=== PATIENT | male | born 1995 | race Two or more races ===

== ENCOUNTER 2023-01-27 13:37 | Inpatient (IN) | payer OTHER, SELFPAY ==
--- NOTE | 2023-01-27 | ECG_ITS ---
Test Reason : COCAINE USE Blood Pressure : / mmHG Vent. Rate : 056 BPM Atrial Rate : 056 BPM P-R Int : 182 ms QRS Dur : 110 ms QT Int : 396 ms P-R-T Axes : 039 066 067 degrees QTc Int : 382 ms Sinus bradycardia Otherwise normal ECG When compared with ECG of 24-APR-2012 18:46, No significant change was found Referred By: Chivo Jo Electronically Signed By:ANAMIKA FLORES MD
--- NOTE | ~2023-01-27 | CT_ITS ---
EXAMINATION: CT HEAD WITHOUT CONTRAST CLINICAL INFORMATION: Status post fall COMPARISON: CT head from 09/11/2017 TECHNIQUE: Contiguous axial imaging was performed from the skull base to vertex without intravenous administration of contrast. This CT examination was performed using dose optimization techniques as appropriate, variously including the following: *Automated exposure control *Adjustment of mA and/or kV according to patient size (this includes techniques or standardized protocols for targeted exams where dose is matched to indication/reason for exam; i.e. extremities or head) *Use of iterative reconstruction technique DLP: 1127 mGy-cm FINDINGS: There is no evidence of acute intracranial hemorrhage or territorial infarction. No abnormal mass effect or midline shift is seen. Maldonado to white matter differentiation is well preserved. No extra-axial fluid collections are identified. The ventricles are normal in size. There is no abnormal attenuation within the brain parenchyma. The osseous structures and soft tissues are normal. The mastoid air cells and visualized portions of the paranasal sinuses are well aerated. CT/CT cervical spine wo IV con IMPRESSION: No acute intracranial pathology. EXAMINATION: Noncontrast CT scan of the cervical spine. INDICATION: Status post fall COMPARISON: None. TECHNIQUE: Helical, multidetector axial images were obtained from the occiput to the upper thorax. Coronal and sagittal reformats of the cervical spine were provided for interpretation. DLP: 1127 mGy-cm FINDINGS: No acute fractures or dislocations of the cervical spine are seen. Anatomic alignment and positioning of the vertebral bodies and posterior elements is noted. The atlantoaxial joint and craniovertebral articulations are normal without evidence of subluxation. There is no prevertebral soft tissue swelling. The thyroid gland and visualized portions of the lung apices and mediastinum are unremarkable. IMPRESSION: No acute visible fracture or dislocation.
--- NOTE | ~2023-01-27 | XR_ITS ---
EXAMINATION: XR HAND, LEFT CLINICAL INFORMATION: Left hand pain. COMPARISON: None available. TECHNIQUE: PA, lateral, and oblique views of the left hand. An indicator arrow points to the fifth digit. FINDINGS: The bones and soft tissues are normal. No fracture. Alignment is anatomic. Joint spaces are maintained. No erosions or soft tissue calcifications. XR/XR hand LT min 3V IMPRESSION: Unremarkable left hand.
[2023-01-27 13:56] VITALS: BP 120/72; PULSE 52; O2SAT 98
[2023-01-27 14:02] VITALS: BP 125/73; PULSE 58; RESP 18; TEMP 36.6; O2SAT 97; BMI 23.5
--- NOTE | 2023-01-27 14:03 | ED_ITS ---
HPI - Psych General Chief Complaint: Psychiatric Symptoms Stated Complaint: CRISIS Time Seen by Provider: 01/27/23 13:54 Source: patient Mode of arrival: EMS Limitations: no limitations History of Present Illness HPI Narrative: Patient arrived by ambulance on a Section 12 signed by in because SI. He has history of bipolar disorder he has long history of mental illness. He states that he feels unsafe complaint: suicidal ideation Onset (ago): day(s) (1) Duration: constant History of same: Yes Relieving factors: none Exacerbating factors: none Associated psychiatric symptoms: none Associated symptoms: denies other symptoms Related Data Allergies Allergy/AdvReac Type Severity Reaction Status Date / Time No Known Allergies Allergy Verified 01/27/23 14:14 [No Known Allergies*] Review of Systems Constitutional: Constitutional: Reports no additional constitutional complaints ENT: Reports system reviewed and no additional complaints, except as documented Cardiovascular: Cardiovascular: Reports no additional cardiovascular complaints Respiratory: Respiratory: Reports no additional respiratory complaints Psychiatric: Psychiatric: Reports depression [facility] Past Medical History [facility] Narrative: Bipolar disorder/depression Social History Social History Alcohol intake: current Alcohol intake frequency: 3 or more drinks per day Smoked in Last 30 Days: Yes Substance Use Type: Crack/Cocaine and Marijuana Advance Directives: No Physical Exam Vital Signs: Vital Signs: Last Vital Signs Temp 98 F 01/27/23 16:00 Pulse 71 01/27/23 16:00 Resp 18 01/27/23 16:00 BP 124/78 01/27/23 16:00 Pulse Ox 98 01/27/23 16:00 O2 Del Method Room Air 01/27/23 16:00 BMI result Body Mass Index 23.5 Const: General: cooperative Nutritional Appearance: average body habitus Orientation/consciousness: patient oriented x3 Limitations: no limitations HEENT: Head: Yes normal to inspection Ears: hearing grossly normal bilaterally General nose exam: Normal external nose present Face and sinus: Yes normal facial exam Mouth: Normal oral and palatal mucosa present Teeth and gingiva: dentition normal Throat: Yes posterior oropharynx normal Neck: Neck: Yes normal visual inspection Chest: Chest palpation & inspection: normal inspection of the chest Resp: Effort & Inspection: normal respiratory effort Auscultation: clear to auscultation bilaterally Cardio: Jugular venous distension: no JVD Rate: regular rate Rhythm: regular rhythm GI: Inspection: Yes normal to inspection Palpation (GI): Soft to palpation, not firm and nontender : General: Yes no CVA tenderness Back/Spine/Pelvis: Back: no CVA tenderness Cervical Spine: normal cervical lordosis Skin: General skin exam: no rashes or lesions noted and turgor normal Lesions: no lesions Rashes: no rashes Neuro: General: patient oriented x3 Cranial nerves: Yes CN's II-XII intact bilaterally Course Reevaluation(s) Reevaluation #1: Signed out to Dr Ross at this time pt is bed search Time: 16:24 Medications Administered Generic Name Dose Route Start Last Admin Trade Name Freq PRN Reason Stop Dose Admin Lorazepam 1 mg 01/27/23 15:13 01/27/23 15:32 Lorazepam 1 Mg Tablet PO 1 mg QID PRN Administration Alcohol Withdrawal Discontinued Medications Generic Name Dose Route Start Last Admin Trade Name Freq PRN Reason Stop Dose Admin Nicotine Polacrilex 2 mg 01/27/23 15:28 01/27/23 15:32 Nicotine Polacrilex 2 Mg Gum BUCCAL 01/27/23 15:29 2 mg ONCE ONE Administration Medical Decision Making Medical Decision Making [facility] Narrative: Patient presented with SI on a Section 12 bed search is ongoing Lab Data 01/27/23 15:41 01/27/23 15:41 Labs: Lab Results 01/27/23 01/27/23 01/27/23 Range/Units 14:42 15:41 15:41 WBC 12.8 H (4.8-10.8) X10*3/uL RBC 4.61 (4.60-5.80) X10*6/uL Hgb 13.7 L (14.0-18.0) g/dl Hct 40.4 L (42.0-52.0) % MCV 87.6 (80.0-98.0) fL MCH 29.7 (27.0-33.0) pg MCHC 33.9 (31.0-36.0) g/dl RDW 13.2 (11.0-16.0) % Plt Count 234 (160-400) X10*3/uL MPV 9.8 (9.4-12.4) fL Immature Gran % (Auto) 0.4 (0.0-0.4) % Neut % (Auto) 67.3 (45-73) % Lymph % (Auto) 22.7 (20-40) % [place] % (Auto) 8.3 (2-11) % Eos % (Auto) 0.9 (0-4) % Baso % (Auto) 0.4 (0-2) % Lymph # (Auto) 2.9 (1.2-4.9) X10*3/uL [place] # (Auto) 1.1 (0.1-1.2) X10*3/uL Eos # (Auto) 0.1 (0.0-0.4) X10*3/uL Baso # (Auto) 0.1 (0.0-0.2) X10*3/uL Abs Immat Gran (auto) 0.05 H (0.00-0.03) X10*3/uL Absolute Neuts (auto) 8.7 H (2.0-8.3) x10*3/uL Absolute Nucleated RBC 0.000 (0.0-0.012) X10*3/uL Nucleated RBC % (auto) 0.0 (0.0-0.2) /100WBC Sodium 138 (135-145) mmol/L Potassium 4.0 (3.3-5.1) mmol/L Chloride 103 (96-108) mmol/L Carbon Dioxide 25 (22-29) mmol/L Anion Gap 14 (12-20) BUN 10 (9-16) mg/dL Creatinine 0.90 (0.5-1.4) mg/dL Estim Creat Clear Calc 113.2 Estimated GFR > 60 Random Glucose 85 (60-115) mg/dL Calcium 9.6 (8.4-10.2) mg/dL Urine Opiates Screen Not Detected (Not Detect) Urine Fentanyl Screen Not Detected (Not Detect) Ur Barbiturates Screen Not Detected (Not Detect) Ur Phencyclidine Scrn Not Detected (Not Detect) Ur Amphetamines Screen Not Detected (Not Detect) U Benzodiazepines Scrn Not Detected (Not Detect) Urine Cocaine Screen POSITIVE H (Not Detect) U Marijuana (THC) Screen POSITIVE H (Not Detect) Discharge Plan Discharge Clinical Impression: Suicidal ideation Patient Disposition: Still a Patient Interventions: [place]-Suicide Risk Severity Scale Last Done: 01/27/23 14:08
[2023-01-27 15:00] LABS: Amphetamine Screen Urine Not Detected (Not Detect); Barbiturates, Urine Not Detected (Not Detect); Benzodiazepines Screen Urine Not Detected (Not Detect); Cannabinoid Screen Urine POSITIVE (Not Detect); Cocaine Screen Urine POSITIVE (Not Detect); Fentanyl, urine Not Detected (Not Detect); Opiate Screen Urine Not Detected (Not Detect); Phencyclidine Screen Urine Not Detected (Not Detect)
--- NOTE | 2023-01-27 15:05 | MHC.CARE ---
Pt is a [facility] bedsearch from the [facility].
[2023-01-27] MEDS: Nicotine Polacrilex 2 MG GUM BUCCAL (15:32)
[2023-01-27] MEDS: LORazepam 1 MG TABLET PO ×2 (15:32→20:16)
[2023-01-27 15:45] LABS: MANUAL DIFF FLAG NO
[2023-01-27 15:46] LABS: Basophils Absolute Auto 0.1 X10*3/uL (0.0-0.2); Basophils Percent Auto 0.4 % (0-2); Eosinophils Absolute Auto 0.1 X10*3/uL (0.0-0.4); Eosinophils Percent Auto 0.9 % (0-4); Hematocrit 40.4 % (42.0-52.0); Hemoglobin 13.7 g/dl (14.0-18.0); Imm Gran Abs Auto 0.05 X10*3/uL (0.00-0.03); Imm Gran Pct Auto 0.4 % (0.0-0.4); Lymphocytes Absolute Auto 2.9 X10*3/uL (1.2-4.9); Lymphocytes Percent Auto 22.7 % (20-40); Mean Corpuscular HGB Conc 33.9 g/dl (31.0-36.0); Mean Corpuscular Hemoglobin 29.7 pg (27.0-33.0); Mean Corpuscular Volume 87.6 fL (80.0-98.0); Mean Platelet Volume 9.8 fL (9.4-12.4); Monocytes Absolute Auto 1.1 X10*3/uL (0.1-1.2); Monocytes Percent Auto 8.3 % (2-11); Neutrophils Absolute Auto 8.7 x10*3/uL (2.0-8.3); Neutrophils Percent Auto 67.3 % (45-73); Platelet Count 234 X10*3/uL (160-400); Red Blood Count 4.61 X10*6/uL (4.60-5.80); Red Cell Distribution Width 13.2 % (11.0-16.0); White Blood Count 12.8 X10*3/uL (4.8-10.8)
[2023-01-27 15:58] LABS: Anion Gap 14 (12-20); Blood Urea Nitrogen 10 mg/dL (9-16); Calcium 9.6 mg/dL (8.4-10.2); Carbon Dioxide 25 mmol/L (22-29); Chloride 103 mmol/L (96-108); Creatinine Clr Calc Pharmacy 113.2; Estimated Glomerular Filt Rate > 60; Glucose Random 85 mg/dL (60-115); Sodium 138 mmol/L (135-145)
[2023-01-27 16:00] VITALS: BP 124/78; PULSE 71; RESP 18; TEMP 36.6; O2SAT 98
--- NOTE | 2023-01-27 16:00 | PC.NURSE ---
report received from CASSIUS ramirez Pt resting comfortably in bed at this time, reporting feeling some withdrawal symptoms , CIWA score 5, Dr. Jo aware PRN Ativan ordered. VSS at this time Pt otherwise in good spirits about being a bedsearch. Pt does endorse histroy of alcohol withdrawal, monitoring vitals and CIWA score per MD discretion. Continue plan of care
--- NOTE | 2023-01-27 16:15 | PC.NURSE ---
EKG and all lab work complete on pt, pt now resting with lights off in room
[2023-01-27 16:36] LABS: COVID-19 Test Negative (Negative); IDNOW Serial# 55D5AD1C
[2023-01-27 17:28] LABS: Ethanol < 10 mg/dL
[2023-01-27 20:17] VITALS: BP 127/77; PULSE 53; RESP 18; TEMP 36.5; O2SAT 99
[2023-01-28] MEDS: LORazepam 1 MG TABLET 2 MG PO (02:59)
[2023-01-28 03:04] VITALS: BP 130/77; PULSE 58; RESP 16; TEMP 36.6; O2SAT 99
--- NOTE | 2023-01-28 05:30 | PC.NURSE ---
Patient slept through the night, no distress observed/reported, asymptomatic of ETOH withdrawal, Ativan 1 mg administered at 2045 and Ativan 2 mg PO administered 258 for restlessness with + effect, disposition per [facility] is section 12 inpatient bed search, behavior non concerning, VSS, will continue to monitor,
[2023-01-28] MEDS: Nicotine Polacrilex 2 MG GUM BUCCAL ×2 (07:35→18:01)
[2023-01-28] MEDS: LORazepam 1 MG TABLET PO ×2 (11:29→20:16)
--- NOTE | 2023-01-28 12:57 | MHC.CARE ---
patient remains an inpt LOC bed search.
[2023-01-28 15:00] VITALS: PULSE 86; RESP 16; O2SAT 97
--- NOTE | 2023-01-28 15:29 | PC.NURSE ---
report received from morning RN, pt is sleeping at this time, respirations even and unlabored, skin pwd, no apparent distress. Continue plan of care for inpatient bedsearch
--- NOTE | 2023-01-28 17:31 | PC.NURSE ---
pt came up to nursing station requesting to talk to someone about his stay. This RN spoke with pt and educated him on what a section 12 means and entails and what the process will be moving forward. Pt is agreeable at this time to the plan. Pt showered and is now relaxing in pod common area
--- NOTE | 2023-01-28 18:05 | PC.NURSE ---
pt on the phone with his girlfriend at this time
[2023-01-28 20:20] VITALS: BP 113/78; PULSE 80; RESP 20; TEMP 37.1; O2SAT 99
--- NOTE | 2023-01-28 21:04 | PC.NURSE ---
Assumed care of pt. at 1900. Pt. up and watching tv. Pt. talked on phone. Pt. does have visible tremors and reports some mild anxiety along with a mild headache attributed to withdrawals. Pt. medicated with ativan per JAN. Pt. is pending inpatient bed search. 15 minute safety checks remain in place. Will continue to monitor.
[2023-01-28] MEDS: HaloperidoL 5 MG TABLET PO (21:27)
[2023-01-28] MEDS: diphenhydrAMINE HCL 25 MG CAPSULE PO (21:27)
--- NOTE | 2023-01-29 02:39 | PC.NURSE ---
At approximately 2100, pt speaking on phone and pacing the hallway. Pt. was asked to pace and move down near the common area so as to not wake other pt's who were sleeping at the time. Pt. became agitated and started pacing more and muttering and making homicidal statements. Statements made about stabbing all of the staff on duty and then killing all the patients . Pt. upset that he was asked to not disturb other patients as other patients can yell and scream and nothing is done . Attempts made to deescalate pt. and security called. Pt. stated that he would beat up all security and everyone else and that he didn't care about charges being pressed and going to custodial because free room and board . This RN able to get pt. to agree to BK perez and lorraine. Pt. paced for about another 30 minutes and then settled into bed and has been asleep since then. Pt. plan remains an inpatient bed search. Will continue to monitor.
[2023-01-29 05:37] VITALS: RESP 16
--- NOTE | 2023-01-29 07:47 | PC.NURSE ---
patient appears to remain at rest at present, client came out and asked for his food to be heated, completed this for client patient seems irritable by this writers perception
[2023-01-29] MEDS: LORazepam 1 MG TABLET PO ×4 (08:37→20:04)
[2023-01-29] MEDS: Nicotine Polacrilex 2 MG GUM BUCCAL ×2 (08:58→12:36)
[2023-01-29 09:16] VITALS: BP 114/69; PULSE 64; RESP 18; TEMP 36.8; O2SAT 98
[2023-01-29 15:33] VITALS: RESP 18
[2023-01-29 17:23] VITALS: BP 127/65; PULSE 60; RESP 14; TEMP 37.1; O2SAT 99
[2023-01-29] MEDS: Gabapentin 300 MG CAPSULE PO ×2 (17:29→20:03)
[2023-01-29] MEDS: Nicotine Polacrilex 2 MG GUM 4 MG BUCCAL (17:56)
[2023-01-29 18:00] VITALS: RESP 14
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
[2023-01-29] MEDS: QUEtiapine Fumarate 100 MG TABLET PO (20:03)
[2023-01-30] MEDS: Nicotine Polacrilex 2 MG GUM 4 MG BUCCAL ×5 (06:37→19:34)
[2023-01-30] MEDS: Acetaminophen 325 MG TABLET 650 MG PO (08:23)
[2023-01-30] MEDS: Gabapentin 300 MG CAPSULE PO ×3 (08:23→19:31)
[2023-01-30] MEDS: LORazepam 1 MG TABLET 2 MG PO ×2 (08:23→11:36)
[2023-01-30 08:35] VITALS: BP 130/80; PULSE 97; RESP 16; TEMP 36.7; O2SAT 98
[2023-01-30 09:56] LABS: Cholesterol 159 mg/dL; HDL Cholesterol 31 mg/dL; LDL Cholesterol Calculated 103 mg/dl; Triglycerides 125 mg/dL
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
[2023-01-30 10:27] LABS: Estimated Average Glucose 97 mg/dL
[2023-01-30] MEDS: QUEtiapine Fumarate 25 MG TABLET 75 MG PO (11:46)
[2023-01-30] MEDS: LORazepam 1 MG TABLET PO ×3 (15:10→19:32)
[2023-01-30] MEDS: QUEtiapine Fumarate 25 MG TABLET PO (15:12)
[2023-01-30 16:26] VITALS: BP 131/83; PULSE 104
[2023-01-30] MEDS: cloNIDine HCL 0.1 MG TABLET PO (18:03)
[2023-01-30 18:06] VITALS: BP 138/72; PULSE 94
[2023-01-30] MEDS: QUEtiapine Fumarate 100 MG TABLET PO (19:32)
[2023-01-31] MEDS: QUEtiapine Fumarate 25 MG TABLET PO (05:46)
[2023-01-31] MEDS: Nicotine Polacrilex 2 MG GUM 4 MG BUCCAL ×3 (05:46→21:40)
[2023-01-31 07:50] VITALS: BP 108/70; PULSE 97; RESP 16; TEMP 36.5; O2SAT 98
[2023-01-31] MEDS: LORazepam 1 MG TABLET 2 MG PO ×2 (07:58→11:29)
[2023-01-31] MEDS: Gabapentin 300 MG CAPSULE PO ×3 (07:58→21:39)
[2023-01-31] MEDS: LORazepam 1 MG TABLET PO ×4 (07:58→21:39)
[2023-01-31] MEDS: QUEtiapine Fumarate 25 MG TABLET 75 MG PO (07:58)
[2023-01-31] MEDS: FLUoxetine HCl 10 MG CAPSULE PO (07:58)
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
[2023-01-31] MEDS: QUEtiapine Fumarate 50 MG TABLET PO (12:43)
[2023-01-31] MEDS: Nicotine 21 MG PATCH.TD24 TRANSDERMA (12:57)
[2023-01-31] MEDS: Acetaminophen 325 MG TABLET 650 MG PO (14:12)
[2023-01-31] MEDS: OLANZapine 10 MG TABLET PO (14:12)
[2023-01-31] MEDS: cloNIDine HCL 0.1 MG TABLET PO (14:59)
[2023-01-31 15:01] VITALS: BP 128/77; PULSE 87
[2023-01-31] MEDS: Ibuprofen 800 MG TABLET PO (15:19)
[2023-01-31 20:25] VITALS: BP 124/60; PULSE 77; RESP 14; TEMP 36.6
[2023-01-31] MEDS: QUEtiapine Fumarate 100 MG TABLET PO (21:39)
[2023-01-31] MEDS: OXcarbazepine 150 MG TABLET PO (21:39)
[2023-02-01] MEDS: LORazepam 1 MG TABLET PO ×3 (04:24→07:50)
[2023-02-01] MEDS: Nicotine Polacrilex 2 MG GUM 4 MG BUCCAL ×3 (04:25→09:13)
[2023-02-01 07:00] VITALS: BMI 27.0
[2023-02-01] MEDS: FLUoxetine HCl 10 MG CAPSULE PO (07:50)
[2023-02-01] MEDS: QUEtiapine Fumarate 25 MG TABLET 75 MG PO (07:50)
[2023-02-01] MEDS: Gabapentin 300 MG CAPSULE PO (07:50)
[2023-02-01] MEDS: OXcarbazepine 150 MG TABLET PO (07:50)
[2023-02-01 08:25] VITALS: BP 129/73; PULSE 99; RESP 16; TEMP 36.7; O2SAT 98
[2023-02-01] MEDS: cloNIDine HCL 0.1 MG TABLET PO (08:30)
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
--- NOTE | 2023-02-01 11:52 | ECG_ITS ---
Test Reason : light heADED Blood Pressure : / mmHG Vent. Rate : 077 BPM Atrial Rate : 077 BPM P-R Int : 168 ms QRS Dur : 094 ms QT Int : 344 ms P-R-T Axes : 061 066 064 degrees QTc Int : 389 ms Normal sinus rhythm Normal ECG When compared with ECG of 27-JAN-2023 16:06, No significant change was found Referred By: Glenn Heard Electronically Signed By:JEISON GEE
[2023-02-01 12:08] LABS: Glucose, Whole Blood 91 mg/dL (60-115)
--- NOTE | 2023-02-01 12:32 | P.EN_ITS ---
Event Note Date of Service: 02/01/23 Event Note: Rapid response called around 1150. Upon arrival to unit patient laying supine on floor confused appearing but able to state name and give history. States was walking in the hallway and developed suddent onset lightheadedness and collapsed. Unclear if there was LOC but did hit head hard per nursing. He reports feeling ongoing lightheadedness, feeling hot, and with sweats. No sob, cp. He continues to try to get up despite being advised to remain still. C- collar applied to patient's neck for stabilization. EKG obtained showing NSR. QTc normal. Per Dr. Heard patient was started on low dose trileptal last night, which could potentially result in lightheadedness. However, given history seems this may have been a vasovagal episode now with confusion likely due to concussion. Head and cervical spine CT ordered to evaluate for any acute intracranial abnormality including bleed, fracture, or subluxation. Time Spent With Patient Time: Total time managing care of this patient today ____ minutes.
--- NOTE | 2023-02-01 12:51 | PM.PSYDC ---
DS: Providers Provider Date of Service: 02/01/23 Date of admission: 01/29/23 15:35 Date of discharge: 02/01/23 Primary care physician: None Physician Attending physician on admission: Glenn Heard Attending physician on discharge: Glenn Heard DS: Diagnosis Discharge Diagnosis (1) MDD (major depressive disorder): Status: Acute (2) PTSD (post-traumatic stress disorder): Status: Acute (3) Intermittent explosive disorder: Status: Acute (4) Alcohol use disorder: Status: Acute (5) Opioid use disorder: Status: Acute DS: Medications Discharge Medications Home Medications: Home Medications Medication Instructions Recorded Confirmed No Known Home Meds 01/27/23 01/27/23 Mental Status Exam Mental Status Exam Narrative: Pt is alert and oriented; behavior is labile, friendly and cooperative until triggered and then becoming intense and outrageously angry and in emotional distress; dressed in casual attire, well groomed; tattoos and scars on his arms; mood is described as hurt...angry and affect congruent and intense, intermittently tearful; eye contact appropriate; Speech is normal rate, volume and prosody when not feeling triggered; intermittent intense psychomotor agitation present; thought process is organized and goal directed; Thought content is on tx, past trauma, self-deprecating thoughts; otherwise pertinent to relevant topics and without any delusional content, paranoid ideations or grandiosity; intermittent SI; no HI. There is no evidence of perceptual disturbance and denies AVH. Patients insight and judgment are impaired. Data Data Completed and Pending Completed studies during hospitalization [Text1]: 01/27/23 01/27/23 01/27/23 14:42 15:41 15:41 WBC 12.8 H RBC 4.61 Hgb 13.7 L Hct 40.4 L MCV 87.6 MCH 29.7 MCHC 33.9 RDW 13.2 Plt Count 234 MPV 9.8 Immature Gran % (Auto) 0.4 Neut % (Auto) 67.3 Lymph % (Auto) 22.7 [place] % (Auto) 8.3 Eos % (Auto) 0.9 Baso % (Auto) 0.4 Lymph # (Auto) 2.9 [place] # (Auto) 1.1 Eos # (Auto) 0.1 Baso # (Auto) 0.1 Abs Immat Gran (auto) 0.05 H Absolute Neuts (auto) 8.7 H Absolute Nucleated RBC 0.000 Nucleated RBC % (auto) 0.0 Sodium 138 Potassium 4.0 Chloride 103 Carbon Dioxide 25 Anion Gap 14 BUN 10 Creatinine 0.90 Estim Creat Clear Calc 113.2 Estimated GFR > 60 POC Glucose Random Glucose 85 Estimat Average Glucose Hemoglobin A1c % Calcium 9.6 Triglycerides Cholesterol LDL Cholesterol, Calc HDL Cholesterol Urine Opiates Screen Not Detected Urine Fentanyl Screen Not Detected Ur Barbiturates Screen Not Detected Ur Phencyclidine Scrn Not Detected Ur Amphetamines Screen Not Detected U Benzodiazepines Scrn Not Detected Urine Cocaine Screen POSITIVE H U Marijuana (THC) Screen POSITIVE H Ethyl Alcohol < 10 COVID-19 ([facility]) COVID-19 Clin Com 01/27/23 01/30/23 01/30/23 16:05 08:12 08:12 WBC RBC Hgb Hct MCV MCH MCHC RDW Plt Count MPV Immature Gran % (Auto) Neut % (Auto) Lymph % (Auto) [place] % (Auto) Eos % (Auto) Baso % (Auto) Lymph # (Auto) [place] # (Auto) Eos # (Auto) Baso # (Auto) Abs Immat Gran (auto) Absolute Neuts (auto) Absolute Nucleated RBC Nucleated RBC % (auto) Sodium Potassium Chloride Carbon Dioxide Anion Gap BUN Creatinine Estim Creat Clear Calc Estimated GFR POC Glucose Random Glucose Estimat Average Glucose 97 Hemoglobin A1c % 5.0 Calcium Triglycerides 125 Cholesterol 159 LDL Cholesterol, Calc 103 HDL Cholesterol 31 Urine Opiates Screen Urine Fentanyl Screen Ur Barbiturates Screen Ur Phencyclidine Scrn Ur Amphetamines Screen U Benzodiazepines Scrn Urine Cocaine Screen U Marijuana (THC) Screen Ethyl Alcohol COVID-19 ([facility]) Negative COVID-19 Clin Com See Note 02/01/23 11:53 WBC RBC Hgb Hct MCV MCH MCHC RDW Plt Count MPV Immature Gran % (Auto) Neut % (Auto) Lymph % (Auto) [place] % (Auto) Eos % (Auto) Baso % (Auto) Lymph # (Auto) [place] # (Auto) Eos # (Auto) Baso # (Auto) Abs Immat Gran (auto) Absolute Neuts (auto) Absolute Nucleated RBC Nucleated RBC % (auto) Sodium Potassium Chloride Carbon Dioxide Anion Gap BUN Creatinine Estim Creat Clear Calc Estimated GFR POC Glucose 91 Random Glucose Estimat Average Glucose Hemoglobin A1c % Calcium Triglycerides Cholesterol LDL Cholesterol, Calc HDL Cholesterol Urine Opiates Screen Urine Fentanyl Screen Ur Barbiturates Screen Ur Phencyclidine Scrn Ur Amphetamines Screen U Benzodiazepines Scrn Urine Cocaine Screen U Marijuana (THC) Screen Ethyl Alcohol COVID-19 ([facility]) COVID-19 Clin Com Imaging Diagnostic Imaging Impressions Hand X-Ray 01/31/23 14:20 IMPRESSION: Unremarkable left hand. DS: Summary Hospital Course Hospital Course: Patient is a 28-year-old male with history of PTSD, depression, drug and alcohol abuse, gang affiliation who presents for suicidal ideation in the face of chronic depression and recent verbal altercation with [id number]. -patient has a long history of severe trauma starting in childhood and continuing into his adult life which is unprocessed and ongoing; symptoms are worsened by chronic daily substance abuse; there is likely a characterological component to his symptoms as well. That said patient is eagerly seeking treatment, distraught by how easily he gets anger and how much it is controlled and ruins his life. Will detox patient from alcohol abuse; PRNs will also help with opioid detox. Patient agrees to starting Prozac which is indicated for PTSD, depression and anxiety; will also restart Seroquel which patient said helped him in the past. Patient has had some very intense angry outbursts since being on the unit; he is able to be redirected and puts himself in his room to keep him away from others however patient will likely benefit from a mood stabilizer to help control his anger. 01/31 when feeling calm and in control, patient is cooperative, friendly, considerate and appropriately engaged in treatment. When triggered he becomes explosively angry, and though he publicly expresses it, tries to avoid interacting with others so that he can cool off without getting in any kind of altercation. Patient understands combination of unprocessed trauma and raw emotions more fully exposed by sobriety. Agrees to start Trileptal In his anger patient punched wall with his left hand; x-ray ordered -otherwise patient started on Trileptal for intermittent explosive disorder; also continued on Prozac and Seroquel regimen On 02/01 Preventive Medicine Specialist met with patient who reports he is feeling better and despite still feeling intermittently emotionally dysregulated, feels that he is getting more calm; feels withdrawals being well treated. As patient was walking down the [place] he had a witnessed sudden syncopal event;LAN/WAN ENGINEER called -no seizure activity and pt was able to follow verbal directions -vitals all within normal limits; blood sugar within normal limits; labs within normal limits.? On fall, patient hit the back of his head; head CT/neck CT ordered and pt transferred to medical floor for obs Time spent discussing smoking cessation with patient: 3 to 10 minutes Status at Discharge Functional status at discharge: wheelchair bound Overall status at discharge: patient is progressing back to baseline Time Spent with Patient Time attestation: Total time managing care of this patient today ____ minutes. Time spent: Greater than 30 minutes Discharge Plan Discharge Anticipated Discharge Date/Time: 02/01/23 12:48 Patient Disposition: Xfer Acute Care Hospital Discharge Diagnosis: MDD; AMS Referrals: Physician,None [Primary Care Provider] - 1 Week Discharge Medications: No Action quetiapine 25 mg Tablet 75 mg PO DAILY oxcarbazepine 150 mg Tablet 150 mg PO BID clonidine HCl 0.1 mg Tablet 0.1 mg PO Q4H PRN (Reason: Agitation) acetaminophen 325 mg Tablet 650 mg PO Q6H PRN (Reason: Pain) trazodone 50 mg Tablet 50 mg PO BEDTIME Rx Instructions: MAY REPEAT X 1 ibuprofen 800 mg Tablet 800 mg PO Q8H PRN (Reason: Pain) olanzapine 10 mg Tablet 10 mg PO TID PRN (Reason: Agitation) quetiapine 100 mg Tablet 100 mg PO BEDTIME magnesium hydroxide [Milk of Magnesia] 400 mg/5 mL Suspension 30 ml PO DAILY PRN (Reason: Constipation) magnesium hydroxide 400 mg/5 mL Suspension 30 ml PO Q6H PRN (Reason: Indigestion) nicotine (polacrilex) 4 mg Gum 4 mg BUCCAL Q2H PRN (Reason: Nicotine Cravings) nicotine 21 mg/24 hr Patch 24 Hour 1 patch TRANSDERMAL DAILY fluoxetine 10 mg Capsule 10 mg PO DAILY gabapentin 300 mg Capsule 300 mg PO TID lorazepam 1 mg Tablet 1 mg PO Q2H PRN (Reason: Agitation) lorazepam 1 mg Tablet 1 mg PO TID quetiapine 50 mg Tablet 50 mg PO Q4H PRN (Reason: Agitation) Discharge Orders: Discharge Order (Routine); Ordered 02/01/23 Ordered By: Glenn Heard Diet: deferred Activity on Discharge: defer to medical Stand Alone Forms: Patient Portal Discharge page Care Plan Goals: Transferred to medicine Health Concerns: Transferred to medicine Plan of Treatment: Transferred to medicine Assessment: Transferred to medicine Discharge Date/Time: 02/01/23 12:59
--- NOTE | 2023-02-01 13:11 | PC.NURSE ---
At approx 11:50 pt was noted to be walking down the hallway in front of the nurses station, stated he felt dizzy. Pt. fell backwards hitting his head. was non arousable and rapid response called. Didnt repond right away. did come too after approx 4 minutes and was able to state his name and was worried that so many people were standing around him. no incontinence. Pt placed in C collar and transported to ER for CT scan. Dr. Jordan will transfer to [facility]. will attempt to notify family. All supervisors aware.
[2023-02-02 08:46] LABS: Hematocrit 40.4 % (42.0-52.0); Hemoglobin 13.7 g/dl (14.0-18.0); Mean Corpuscular HGB Conc 33.9 g/dl (31.0-36.0); Mean Corpuscular Volume 88.6 fL (80.0-98.0); Mean Platelet Volume 9.9 fL (9.4-12.4); Platelet Count 232 X10*3/uL (160-400); Red Blood Count 4.56 X10*6/uL (4.60-5.80); Red Cell Distribution Width 13.4 % (11.0-16.0); White Blood Count 7.5 X10*3/uL (4.8-10.8)
[2023-02-02 09:50] LABS: Anion Gap 13 (12-20); Blood Urea Nitrogen 17 mg/dL (9-16); Calcium 9.7 mg/dL (8.4-10.2); Carbon Dioxide 25 mmol/L (22-29); Chloride 104 mmol/L (96-108); Creatinine Clr Calc Pharmacy 107.2; Estimated Glomerular Filt Rate > 60; Glucose Fasting 89 mg/dL (60-99); Potassium 4.5 mmol/L (3.3-5.1); Sodium 137 mmol/L (135-145)
== END 2023-02-01 12:59 | disposition short-term general hospital (02) | DRG 754 ==
LOC: HO.ED 14:08 → HO.PM5 01-29 15:44
PROVIDERS: Internal Medicine; Admitting Provider Psychiatry & Neurology Psychiatry; Emergency Provider Emergency Medicine; Visit Provider Psychiatry & Neurology Psychiatry
DX: F32.9 Major depressive disorder, single episode, unspecified (principal); R45.851 Suicidal ideations; F11.10 Opioid abuse, uncomplicated; R55 Syncope and collapse; F63.81 Intermittent explosive disorder; F10.10 Alcohol abuse, uncomplicated; F17.210 Nicotine dependence, cigarettes, uncomplicated; F43.10 Post-traumatic stress disorder, unspecified; Z20.822 Contact with and (suspected) exposure to COVID-19; Z71.6 Tobacco abuse counseling; Z79.899 Other long term (current) drug therapy
CPT/HCPCS: 36415; 70450; 72125; 73130; 80048; 80061; 80307; 82077; 82947; 83036; 85025; 85027; 87635; 93005; 99285; S9485

== ENCOUNTER 2023-02-01 12:55 | Observation (INO) | payer OTHER, SELFPAY ==
--- NOTE | 2023-02-01 13:02 | PM.IMHP ---
History of Present Illness Date of Service: 02/01/23 Chief Complaint: syncope, head trauma, confusion 28M pmh etoh dpeendence, PTSD, opiate dependence, MDD, was in inpatient psychiatry for suicidal ideation, aggressive behaviours, and etoh withdrawal. 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 patient had very brief LOC, followed by confusion, headaches, lightheadedness, amnesia. CThead and neck done, report pending. patient denies chest pain sob, fever, chills. Review of Systems Review of Systems: Yes all other systems are reviewed and are negative [facility] Medical History Alcohol use disorder Intermittent explosive disorder MDD (major depressive disorder) Opioid use disorder PTSD (post-traumatic stress disorder) Social History Household Members: Significant Other and Other Household Members Other:: goes back and forth between Mother's apartment and girlfriend's house Housing: Apartment Do you presently have visiting nurse or other home services: No Alcohol intake: current Alcohol intake frequency: 3 or more drinks per day Patient Tobacco Use Status: Current everyday Tobacco user Tobacco use type: Cigarette Cigarette Packs Per Day: 1 Cigarettes Per Day: 20.0 e-Cigarette/Vaping Use: Never Used Substance Use Type: Crack/Cocaine and Marijuana service: No Sexual orientation: Straight/Heterosexual Meds Allergies Allergy/AdvReac Type Severity Reaction Status Date / Time No Known Allergies Allergy Verified 01/27/23 14:14 [No Known Allergies*] Active Medications: Current Medications Sodium Chloride (0.9 % Sodium Chloride Flush 3 Ml Syringe) 3 ml IVFLUSH [facility] Home Medications Medication Instructions Recorded Confirmed Last Taken Type No Known Home Meds 01/27/23 01/27/23 Unknown History Physical Exam Vital Signs and Narrative: amnestic, answering appropriately, awake, tracking, no focal deficit, slow quiet speech, Assessment and Plan (1) Opioid use disorder: Status: Acute Plan 28M pmh etoh dpeendence, PTSD, opiate dependence, MDD presented with syncope and head trauma syncope complicated by TBI monitor on tele follow up ct head and neck neurochecks possible MRI in 24hrs mood disorder continue trazodone, zuprexa, ativan, neurontin, seroquel, trileptal likely discharge back to psych when stable etoh dependence monitor ciwa low risk dvt full code Time Spent With Patient Time: Total time managing care of this patient today ____ minutes. Quality Stroke Does the patient have a stroke diagnosis?: No VTE Prior VTE?: No VTE Risk Level:: Medical - low VTE Device Contraindication: Treatment Not Indicated VTE Drug Contraindication: Treatment Not Indicated
[2023-02-01 13:20] VITALS: BP 114/60; PULSE 60; RESP 20; TEMP 37; O2SAT 97
--- NOTE | 2023-02-01 14:41 | PHA.MEDREC ---
Pharmacy Consult ? Medication Reconciliation Pharmacy has completed the medication reconciliation. Pt transferred from psych floor, meds discontinued by Discharge continued per Dr. Jordan
[2023-02-01 15:11] VITALS: BMI 26.5
[2023-02-01 15:46] VITALS: BP 130/65; PULSE 65; RESP 18; TEMP 36.3; O2SAT 98
[2023-02-01 16:15] LABS: MANUAL DIFF FLAG NO
[2023-02-01 16:18] LABS: Basophils Absolute Auto 0.1 X10*3/uL (0.0-0.2); Basophils Percent Auto 0.4 % (0-2); Eosinophils Absolute Auto 0.2 X10*3/uL (0.0-0.4); Eosinophils Percent Auto 1.6 % (0-4); Hematocrit 39.9 % (42.0-52.0); Hemoglobin 13.6 g/dl (14.0-18.0); Imm Gran Abs Auto 0.04 X10*3/uL (0.00-0.03); Imm Gran Pct Auto 0.3 % (0.0-0.4); Lymphocytes Absolute Auto 2.4 X10*3/uL (1.2-4.9); Lymphocytes Percent Auto 20.6 % (20-40); Mean Corpuscular HGB Conc 34.1 g/dl (31.0-36.0); Mean Corpuscular Hemoglobin 30.1 pg (27.0-33.0); Mean Corpuscular Volume 88.3 fL (80.0-98.0); Mean Platelet Volume 10.1 fL (9.4-12.4); Monocytes Absolute Auto 1.1 X10*3/uL (0.1-1.2); Monocytes Percent Auto 9.2 % (2-11); Neutrophils Absolute Auto 7.9 x10*3/uL (2.0-8.3); Neutrophils Percent Auto 67.9 % (45-73); Platelet Count 251 X10*3/uL (160-400); Red Blood Count 4.52 X10*6/uL (4.60-5.80); Red Cell Distribution Width 13.4 % (11.0-16.0); White Blood Count 11.6 X10*3/uL (4.8-10.8)
[2023-02-01] MEDS: OLANZapine 10 MG TABLET PO ×2 (16:45→23:38)
[2023-02-01] MEDS: QUEtiapine Fumarate 50 MG TABLET PO ×2 (16:45→23:37)
[2023-02-01] MEDS: LORazepam 1 MG TABLET PO ×3 (16:45→23:38)
[2023-02-01] MEDS: cloNIDine HCL 0.1 MG TABLET PO ×2 (16:45→23:37)
[2023-02-01] MEDS: Nicotine Polacrilex 2 MG GUM 4 MG BUCCAL (16:49)
[2023-02-01 16:51] LABS: Alanine Aminotransferase 36 U/L (0-40); Albumin Level 4.6 g/dL (3.5-5.0); Alkaline Phosphatase 60 U/L (39-117); Anion Gap 17 (12-20); Aspartate Amino Transferase 43 U/L (5-37); Bilirubin Total 0.3 mg/dL (0.0-1.0); Blood Urea Nitrogen 18 mg/dL (9-16); Calcium 10.1 mg/dL (8.4-10.2); Carbon Dioxide 23 mmol/L (22-29); Chloride 103 mmol/L (96-108); Creatinine Clr Calc Pharmacy 104.4; Estimated Glomerular Filt Rate > 60; Glucose Random 109 mg/dL (60-115); Potassium 4.2 mmol/L (3.3-5.1); Sodium 139 mmol/L (135-145); Total Protein 7.9 g/dL (6.5-8.0)
[2023-02-01 19:47] VITALS: BP 104/51; PULSE 58; RESP 18; TEMP 36.6; O2SAT 98
[2023-02-01] MEDS: QUEtiapine Fumarate 100 MG TABLET PO (20:28)
[2023-02-01] MEDS: OXcarbazepine 150 MG TABLET PO (20:29)
[2023-02-01] MEDS: traZODone HCL 50 MG TABLET PO (20:29)
[2023-02-01] MEDS: Gabapentin 300 MG CAPSULE PO (20:29)
[2023-02-01 23:02] VITALS: BP 116/66; PULSE 58; RESP 20; TEMP 36.4; O2SAT 98
[2023-02-02] MEDS: Nicotine Polacrilex 2 MG GUM 4 MG BUCCAL ×2 (04:48→07:59)
[2023-02-02] MEDS: LORazepam 1 MG TABLET PO ×2 (04:51→07:51)
[2023-02-02 04:57] VITALS: BP 126/78; PULSE 66; RESP 18; TEMP 36.7; O2SAT 98
[2023-02-02 07:40] VITALS: BP 118/76; PULSE 71; RESP 20; TEMP 36.7; O2SAT 96
[2023-02-02] MEDS: FLUoxetine HCl 10 MG CAPSULE PO (07:50)
[2023-02-02] MEDS: Gabapentin 300 MG CAPSULE PO (07:50)
[2023-02-02] MEDS: QUEtiapine Fumarate 25 MG TABLET 75 MG PO (07:50)
[2023-02-02] MEDS: OXcarbazepine 150 MG TABLET PO (07:50)
--- NOTE | 2023-02-02 08:56 | MHC.CM.PN ---
[facility] DELIVERED PT IN FROM PSYCH UNIT. INDEPENDENT AT BASELINE. NO SERVICES PRIOR TO THIS. EMPLOYED P/T. NO HCP, DECLINES AT THIS TIME. + COVID VAX X2 NO PCP IN THE COMMUNITY. BROCHURE FOR [facility] WILL BE PROVIDED. DP: PLAN TO RETURN TO PSYCH UNIT. CM WILL CONTINUE TO FOLLOW FOR PLAN, DC NEEDS.
--- NOTE | 2023-02-02 09:06 | P.DS_ITS ---
DS: Providers Provider Date of Service: 02/02/23 Date of admission: 02/01/23 12:55 Primary care physician: Unknown Physician DS: Diagnosis Discharge Diagnosis (1) Opioid use disorder: Status: Acute DS: Summary Hospital Course Hospital Course: from initial hpi: Chief Complaint: syncope, head trauma, confusion 28M pmh etoh dpeendence, PTSD, opiate dependence, MDD, was in inpatient psychiatry for suicidal ideation, aggressive behaviours, and etoh withdrawal. 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 patient had very brief LOC, followed by confusion, headaches, lightheadedness, amnesia. CThead and neck done, report pending. patient denies chest pain sob, fever, chills. hospital course: Patient was observed for syncope complicated by mild TBI. He had no events on telemetry. His CT head and neck were unremarkable. Next morning patient's symptoms were totally resolved. He displayed no more amnesia. Had no neuro deficits. No need for further imaging. He will be transferred back to inpatient psychiatry Time Spent with Patient Time attestation: Total time managing care of this patient today ____ minutes. Discharge coordination time: Greater than 30 minutes Quality: Safe Use of Opioids Does Pt have an Active Cancer Diagnosis on the Problem List?: No Quality: Stroke Does the patient have a stroke diagnosis?: No Physical Exam Vital Signs: Vital Signs: Last Vital Signs Temp 98.1 F 02/02/23 07:40 Pulse 71 02/02/23 07:40 Resp 20 02/02/23 07:40 BP 118/76 02/02/23 07:40 Pulse Ox 96 02/02/23 07:40 O2 Del Method Room Air 02/02/23 07:40 BMI result Body Mass Index 26.5 General: AO X 3, no acute distress Resp: CTA bilateral, no accessory muscles used CVS: S1,S2,RRR GI: soft, non tender, non distended Neuro: motor grossly intact, alert DS: Data Data Completed and Pending Labs on day of discharge: Laboratory Results - last 24 hr 02/01/23 02/01/23 16:02 16:02 WBC 11.6 H RBC 4.52 L Hgb 13.6 L Hct 39.9 L MCV 88.3 MCH 30.1 MCHC 34.1 RDW 13.4 Plt Count 251 MPV 10.1 Immature Gran % (Auto) 0.3 Neut % (Auto) 67.9 Lymph % (Auto) 20.6 [place] % (Auto) 9.2 Eos % (Auto) 1.6 Baso % (Auto) 0.4 Lymph # (Auto) 2.4 [place] # (Auto) 1.1 Eos # (Auto) 0.2 Baso # (Auto) 0.1 Abs Immat Gran (auto) 0.04 H Absolute Neuts (auto) 7.9 Absolute Nucleated RBC 0.000 Nucleated RBC % (auto) 0.0 Sodium 139 Potassium 4.2 Chloride 103 Carbon Dioxide 23 Anion Gap 17 BUN 18 H Creatinine 1.01 Estim Creat Clear Calc 104.4 Estimated GFR > 60 Random Glucose 109 Calcium 10.1 Total Bilirubin 0.3 AST 43 H ALT 36 Alkaline Phosphatase 60 Total Protein 7.9 Albumin 4.6 Discharge Plan Discharge Anticipated Discharge Date/Time: 02/02/23 09:05 Patient Disposition: Xfer Other Discharge Diagnosis: mild tbi Referrals: Physician,Unknown J [Primary Care Provider] - 1 Week Discharge Medications: Continued quetiapine 25 mg Tablet 75 mg PO DAILY oxcarbazepine 150 mg Tablet 150 mg PO BID clonidine HCl 0.1 mg Tablet 0.1 mg PO Q4H PRN (Reason: Agitation) acetaminophen 325 mg Tablet 650 mg PO Q6H PRN (Reason: Pain) trazodone 50 mg Tablet 50 mg PO BEDTIME Rx Instructions: MAY REPEAT X 1 ibuprofen 800 mg Tablet 800 mg PO Q8H PRN (Reason: Pain) olanzapine 10 mg Tablet 10 mg PO TID PRN (Reason: Agitation) quetiapine 100 mg Tablet 100 mg PO BEDTIME magnesium hydroxide [Milk of Magnesia] 400 mg/5 mL Suspension 30 ml PO DAILY PRN (Reason: Constipation) magnesium hydroxide 400 mg/5 mL Suspension 30 ml PO Q6H PRN (Reason: Indigestion) nicotine (polacrilex) 4 mg Gum 4 mg BUCCAL Q2H PRN (Reason: Nicotine Cravings) nicotine 21 mg/24 hr Patch 24 Hour 1 patch TRANSDERMAL DAILY fluoxetine 10 mg Capsule 10 mg PO DAILY gabapentin 300 mg Capsule 300 mg PO TID lorazepam 1 mg Tablet 1 mg PO Q2H PRN (Reason: Agitation) lorazepam 1 mg Tablet 1 mg PO TID quetiapine 50 mg Tablet 50 mg PO Q4H PRN (Reason: Agitation) Discharge Orders: Discharge Order (Routine); Ordered 02/01/23 Ordered By: Wei Jordan Activity on Discharge: As tolerated Care Plan Goals: recovery Health Concerns: mild tbi Plan of Treatment: kailyn Assessment: see above Discharge Date/Time: 02/02/23 11:25
[2023-02-02] MEDS: Milk of Magnesia 30 ML ORAL.SUSP PO (09:35)
== END 2023-02-02 11:25 | disposition other institution (70) ==
PROVIDERS: Admitting Provider Internal Medicine; Visit Provider Internal Medicine
DX: S06.9X1A Unspecified intracranial injury with loss of consciousness of 30 minutes or less, initial encounter (principal); W22.09XA Striking against other stationary object, initial encounter; W18.39XA Other fall on same level, initial encounter; Y92.239 Unspecified place in hospital as the place of occurrence of the external cause; Y93.89 Activity, other specified; R55 Syncope and collapse; F10.20 Alcohol dependence, uncomplicated; F43.10 Post-traumatic stress disorder, unspecified; F32.9 Major depressive disorder, single episode, unspecified
CPT/HCPCS: 36415; 80053; 85025; 99222; S9485

== ENCOUNTER 2023-02-02 11:05 | Inpatient (IN) | payer OTHER, SELFPAY ==
--- NOTE | 2023-02-02 | ECG_ITS ---
Test Reason : syncope Blood Pressure : / mmHG Vent. Rate : 062 BPM Atrial Rate : 062 BPM P-R Int : 170 ms QRS Dur : 102 ms QT Int : 376 ms P-R-T Axes : 038 063 061 degrees QTc Int : 381 ms Normal sinus rhythm Normal ECG When compared with ECG of 01-FEB-2023 11:57, No significant change was found Referred By: Glenn Heard Electronically Signed By:JEISON GEE
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
[2023-02-02] MEDS: Nicotine Polacrilex 2 MG GUM 4 MG BUCCAL ×4 (11:53→20:49)
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
[2023-02-02] MEDS: cloNIDine HCL 0.1 MG TABLET PO (12:12)
[2023-02-02] MEDS: LORazepam 1 MG TABLET PO ×3 (12:16→20:44)
[2023-02-02 13:07] VITALS: BP 121/58; PULSE 64
[2023-02-02 13:16] VITALS: BP 119/69; PULSE 77
[2023-02-02 13:17] LABS: Glucose, Whole Blood 132 mg/dL (60-115)
[2023-02-02 13:46] VITALS: BP 128/70; PULSE 86; RESP 18; O2SAT 99
[2023-02-02] MEDS: bisacodyL 10 MG SUPP.RECT PR (14:20)
[2023-02-02 14:27] VITALS: BP 116/68; PULSE 89
[2023-02-02] MEDS: QUEtiapine Fumarate 50 MG TABLET PO (14:44)
[2023-02-02] MEDS: Gabapentin 300 MG CAPSULE PO ×2 (14:44→20:44)
--- NOTE | 2023-02-02 14:48 | PM.EVENT ---
Documented by User: KATJA Harden 02/02/23 14:56 Event Note Date of Service: 02/02/23 Event Note: Patient experienced a repeat syncopal episode after eating lunch. Patient states he started feeling lightheaded sitting down eating a banana. When he stood up after finishing he became hot, lightheaded, dizzy, and felt overall weak. Patient slumped to the ground in the dining room doorway. No head strike. Pt states he also felt like his heart was racing. Vitals stable: BP 120/78, HR 86, O2 99%, POC 132. Physical examination immediately after the event significant for 1/5 weakness bilaterally of upper and lower extremities. Minor left-side sensory deficit to light touch. Left-sided abdominal tenderness. Pt states he has not had a bowel movement in four days. Pt is to have repeat CT of head and EKG. Will be placed on a bowel regimen and issued a suppository. Thank you for allowing us to participate in the care of this patient. We will continue to follow at this time, pending results of CT and EKG. Please let us know if there are any acute questions or concerns. Time Spent With Patient Time: Total time managing care of this patient today ____ minutes. Documented by User: Wei Jordan MD 02/02/23 15:05 Event Note Date of Service: 02/02/23
[2023-02-02 15:54] VITALS: BP 134/62; PULSE 110
[2023-02-02] MEDS: OXcarbazepine 150 MG TABLET PO (20:44)
[2023-02-02] MEDS: QUEtiapine Fumarate 100 MG TABLET PO (20:44)
[2023-02-02] MEDS: traZODone HCL 50 MG TABLET PO (21:50)
[2023-02-02] MEDS: OLANZapine 10 MG TABLET PO (21:50)
[2023-02-03] MEDS: QUEtiapine Fumarate 50 MG TABLET PO ×4 (06:35→21:20)
[2023-02-03 08:00] VITALS: BP 118/74; PULSE 86; RESP 18; TEMP 36.6; O2SAT 98
[2023-02-03] MEDS: OXcarbazepine 150 MG TABLET PO ×2 (08:01→20:34)
[2023-02-03] MEDS: FLUoxetine HCl 10 MG CAPSULE PO (08:01)
[2023-02-03] MEDS: Gabapentin 300 MG CAPSULE PO ×3 (08:01→20:34)
[2023-02-03] MEDS: QUEtiapine Fumarate 25 MG TABLET 75 MG PO (08:01)
[2023-02-03] MEDS: LORazepam 1 MG TABLET PO ×2 (08:01→20:34)
[2023-02-03] MEDS: OLANZapine 10 MG TABLET PO ×2 (09:18→15:15)
[2023-02-03] MEDS: Nicotine Polacrilex 2 MG GUM 4 MG BUCCAL ×3 (13:27→20:34)
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
[2023-02-03 20:30] VITALS: BP 130/64; PULSE 103; TEMP 36.4; O2SAT 100
[2023-02-03] MEDS: QUEtiapine Fumarate 100 MG TABLET PO (20:34)
[2023-02-04] MEDS: QUEtiapine Fumarate 50 MG TABLET PO ×4 (02:51→23:49)
[2023-02-04] MEDS: OLANZapine 10 MG TABLET PO ×3 (05:10→18:09)
[2023-02-04] MEDS: Nicotine Polacrilex 2 MG GUM 4 MG BUCCAL ×4 (05:11→18:48)
[2023-02-04] MEDS: LORazepam 1 MG TABLET PO ×2 (08:12→19:47)
[2023-02-04] MEDS: QUEtiapine Fumarate 25 MG TABLET 75 MG PO (08:12)
[2023-02-04] MEDS: Gabapentin 300 MG CAPSULE PO ×3 (08:12→19:47)
[2023-02-04] MEDS: FLUoxetine HCl 10 MG CAPSULE PO (08:12)
[2023-02-04] MEDS: OXcarbazepine 150 MG TABLET PO ×2 (08:12→19:47)
[2023-02-04 08:39] VITALS: BP 126/72; PULSE 82; RESP 18; TEMP 36.4; O2SAT 97
--- NOTE | 2023-02-04 13:27 | HO.PSYCHPN ---
Subjective Subjective Date of Service: 02/04/23 Reason For Visit: Depression Subjective Notes: Conditional Voluntary Interim History: pt anxious; reports feeling triggered by events on unti this am; he reports he felt triggered and very angry but did not act out; he was able to use coping skills - he reports more anxiety, flashbacks and nightmares, poor sleep; increased alcohol crvings. Medication Compliance: Yes Side effects from medications: No Attending Groups: Yes Review of Systems Acute medical concerns: No Medical Review of Systems: unchanged Review of Systems Review of Systems no changes Mental Status Exam Mental Status Exam Narrative: Pt is alert and oriented; behavior is in good control; mood anxious and angry at times; friendly and cooperative until triggered and then becoming intense and outrageously angry and in emotional distress; dressed in casual attire, well groomed; tattoos and scars on his arms; mood is described as hurt...angry and affect congruent and intense, intermittently tearful; eye contact appropriate; Speech is normal rate, volume and prosody when not feeling triggered; intermittent intense psychomotor agitation present; thought process is organized and goal directed; Thought content is on tx, past trauma, self-deprecating thoughts; otherwise pertinent to relevant topics and without any delusional content, paranoid ideas or grandiosity; intermittent SI; no HI. There is no evidence of perceptual disturbance and denies AVH. Patients insight and judgment are impaired but improving. Diagnostics Vital Signs (24Hr): Vital Signs - 24 hr 02/03/23 20:30 02/04/23 08:39 Temperature 97.6 F 97.6 F Pulse Rate 103 H 82 Respiratory Rate 18 Blood Pressure 130/64 126/72 Pulse Oximetry 100 97 Oxygen Delivery Method Room Air Room Air Imaging Radiology Impressions: ITS Impressions Head CT 02/02/23 14:23 IMPRESSION: No acute intracranial pathology. Medications Medications Current Medications Acetaminophen (Acetaminophen 325 Mg Tablet) 650 mg PO Q6H PRN PRN Reason: Headache/Pain Mild Scale (1-3) Al Hydroxide/Mg Hydroxide (Magnesium Hydrox/Alum Hydrox 30 Ml Oral.Susp) 30 ml PO Q6H PRN PRN Reason: Heartburn/Nausea Fluoxetine HCl (Fluoxetine Hcl 10 Mg Capsule) 10 mg PO DAILY [facility] Last Admin: 02/04/23 08:12 Dose: 10 mg Gabapentin (Gabapentin 300 Mg Capsule) 300 mg PO TID [facility] Lorazepam (Lorazepam 1 Mg Tablet) 1 mg PO BID [facility] Last Admin: 02/04/23 08:12 Dose: 1 mg Magnesium Hydroxide (Milk Of Magnesia 30 Ml Oral.Susp) 30 ml PO DAILY PRN PRN Reason: Constipation Magnesium Hydroxide (Milk Of Magnesia 30 Ml Oral.Susp) 30 ml PO Q6H PRN PRN Reason: Indigestion Nicotine (Nicotine 21 Mg Patch.Td24) 21 mg TRANSDERMA DAILY [facility] Last Admin: 02/04/23 08:15 Dose: Not Given Nicotine Polacrilex (Nicotine Polacrilex 2 Mg Gum) 4 mg BUCCAL Q2H PRN PRN Reason: Nicotine Cravings Last Admin: 02/04/23 12:59 Dose: 4 mg Olanzapine (Olanzapine 10 Mg Tablet) 10 mg PO TID PRN PRN Reason: Agitation Last Admin: 02/04/23 13:22 Dose: 10 mg Oxcarbazepine (Oxcarbazepine 150 Mg Tablet) 150 mg PO BID [facility] Last Admin: 02/04/23 08:12 Dose: 150 mg Quetiapine Fumarate (Quetiapine Fumarate 25 Mg Tablet) 75 mg PO DAILY [facility] Last Admin: 02/04/23 08:12 Dose: 75 mg Quetiapine Fumarate (Quetiapine Fumarate 100 Mg Tablet) 100 mg PO BEDTIME [facility] Last Admin: 02/03/23 20:34 Dose: 100 mg Quetiapine Fumarate (Quetiapine Fumarate 50 Mg Tablet) 50 mg PO Q4H PRN PRN Reason: Agitation Last Admin: 02/04/23 11:37 Dose: 50 mg Trazodone HCl (Trazodone Hcl 50 Mg Tablet) 50 mg PO BEDTIME MRX1 PRN PRN Reason: Insomnia Last Admin: 02/02/23 21:50 Dose: 50 mg Allergies Allergies Allergy/AdvReac Type Severity Reaction Status Date / Time No Known Allergies Allergy Verified 01/27/23 14:14 [No Known Allergies*] Assessment & Plan Assessment & Plan (1) MDD (major depressive disorder): Status: Acute Code(s): F32.9 - Major depressive disorder, single episode, unspecified (2) PTSD (post-traumatic stress disorder): Status: Acute Code(s): F43.10 - Post-traumatic stress disorder, unspecified (3) Intermittent explosive disorder: Status: Acute Code(s): F63.81 - Intermittent explosive disorder (4) Opioid use disorder: Status: Acute Code(s): F11.90 - Opioid use, unspecified, uncomplicated (5) Alcohol use disorder: Status: Acute Code(s): F10.90 - Alcohol use, unspecified, uncomplicated Plan Patient is a 28-year-old male with history of PTSD, depression, drug and alcohol abuse, gang affiliation who presents for suicidal ideation in the face of chronic depression and recent verbal altercation with [id number]. Patient returns from medical floor medically cleared. On 02/01 patient was walking down the [address] and had a sudden syncopal event; vitals all within normal limits; blood sugar within normal limits; labs within normal limits. On fall, patient hit the back of his head; he received head CT/neck CT which was unremarkable however spent the night on medicine to assess altered mental status which fully cleared and patient return to the unit. Patient today reports that he is doing well and glad to be back. However patient this morning, NEAR syncopal event, again with all vitals within normal limits; repeat head CT within normal limits. Patient glad to be on the unit and wants to continue with treatment. -patient has a long history of severe trauma starting in childhood and continuing into his adult life which is unprocessed and ongoing; symptoms are worsened by chronic daily substance abuse. Pt eagerly seeking treatment, distraught by how easily he gets anger and how much it is controlled and ruins his life.? First admission Hospital course: detox patient from alcohol abuse; PRNs will also help with opioid detox.? Patient agrees to starting Prozac which is indicated for PTSD, depression and anxiety; will also restart Seroquel which patient said helped him in the past.? Patient has had some very intense angry outbursts since being on the unit; he is able to be redirected and puts himself in his room to keep him away from others however patient will likely benefit from a mood stabilizer to help control his anger. 01/31 when feeling calm and in control, patient is cooperative, friendly, considerate and appropriately engaged in treatment.? When triggered he becomes explosively angry, and though he publicly expresses it, tries to avoid interacting with others so that he can cool off without getting in any kind of altercation.? Patient understands combination of unprocessed trauma and raw emotions more fully exposed by sobriety.? Agrees to start Trileptal In his anger patient punched wall with his left hand; x-ray ordered CURRENT admission Hospital course: 02/02 feel better, glad to be on the unit, did have another near syncopal event however again vitals, head CT within normal limits. Still not sure the etiology however have discontinued clonidine 02/03 continue current treatment plan 02/04 increase gabapentin to 300mg tid for anxiety and alcohol cravings Plan: CV Q 15 minute checks Continue trileptal 125mg BID for intermittent explosive disorder DC CIWA; however continue with Ativan/gabapentin taper Continue Prozac 10 mg daily Continue: -Seroquel 75 mg q.a.m. -Seroquel 50 mg p.r.n. -Seroquel 100 mg q.h.s. Patient educated on: diagnosis, medication risk/benefits, substance abuse and therapeutic strategies Reason for contiued inpatient stay Substantial Risk for: harm to self, harm to others, inability to function and rapid decompensation Time Spent With Patient Time: Total time managing care of this patient today ____ minutes.
[2023-02-04] MEDS: Gabapentin 100 MG CAPSULE 200 MG PO (13:38)
[2023-02-04 18:00] VITALS: BP 130/84; PULSE 107; RESP 14; TEMP 36.8
[2023-02-04] MEDS: QUEtiapine Fumarate 100 MG TABLET PO (19:47)
[2023-02-04] MEDS: traZODone HCL 50 MG TABLET PO (19:47)
[2023-02-04 19:51] VITALS: BP 126/69; PULSE 97; RESP 14; TEMP 37.2
[2023-02-04] MEDS: Acetaminophen 325 MG TABLET 650 MG PO (23:49)
[2023-02-05] MEDS: OLANZapine 10 MG TABLET PO ×2 (05:41→13:10)
[2023-02-05 08:15] VITALS: BP 137/60; PULSE 88; RESP 18; TEMP 36.4; O2SAT 98
[2023-02-05] MEDS: OXcarbazepine 150 MG TABLET PO ×2 (08:24→20:43)
[2023-02-05] MEDS: QUEtiapine Fumarate 25 MG TABLET 75 MG PO (08:24)
[2023-02-05] MEDS: FLUoxetine HCl 10 MG CAPSULE PO (08:25)
[2023-02-05] MEDS: LORazepam 1 MG TABLET PO (08:25)
[2023-02-05] MEDS: Gabapentin 300 MG CAPSULE PO ×2 (08:25→20:43)
[2023-02-05] MEDS: Nicotine Polacrilex 2 MG GUM 4 MG BUCCAL ×3 (08:53→17:16)
[2023-02-05] MEDS: Acetaminophen 325 MG TABLET 650 MG PO (10:30)
[2023-02-05] MEDS: QUEtiapine Fumarate 50 MG TABLET PO ×2 (13:11→17:56)
[2023-02-05 17:05] VITALS: BP 131/74; PULSE 91; TEMP 36.3
--- NOTE | 2023-02-05 17:42 | HO.PSYCHPN ---
Subjective Subjective Date of Service: 02/05/23 Reason For Visit: Depression Interim History: met with patient; discussed with team; reviewed weekend notes pt reports he's doing well, good mood, no SI/HI; says he feels much better, more calm, able to stay in good behavioral and impulse control despite high aquity on the unit (staff corroborates). Pt shares that he's proud of himself and very aware of the changes he's made; he wants to continue tx once discharged including IOP/partial day program. no further dizzy/near syncopal episodes; eating and sleeping well Mental Status Exam Mental Status Exam Narrative: Pt is alert and oriented; behavior cooperative, calm, friendly; dressed in casual attire, well groomed; tattoos and scars on his arms; mood is described as good and affect congruent, calm; eye contact appropriate; Speech is normal rate, volume and prosody; no psychomotor agitation; thought process is organized and goal directed; Thought content is on tx, post discharge plans, sobriety; otherwise pertinent to relevant topics and without any delusional content, paranoid ideations or grandiosity; no SI; no HI. There is no evidence of perceptual disturbance and denies AVH. Patients insight and judgment are fair. Diagnostics Vital Signs (24Hr): Vital Signs - 24 hr 02/04/23 18:00 02/04/23 19:51 02/05/23 08:15 Temperature 98.2 F 98.9 F 97.6 F Pulse Rate 107 H 97 88 Respiratory Rate 14 14 18 Blood Pressure 130/84 126/69 137/60 Pulse Oximetry 98 Oxygen Delivery Method Room Air 02/05/23 17:05 Temperature 97.4 F Pulse Rate 91 Respiratory Rate Blood Pressure 131/74 Pulse Oximetry Oxygen Delivery Method Imaging Radiology Impressions: ITS Impressions Head CT 02/02/23 14:23 IMPRESSION: No acute intracranial pathology. Medications Medications Current Medications Acetaminophen (Acetaminophen 325 Mg Tablet) 650 mg PO Q6H PRN PRN Reason: Headache/Pain Mild Scale (1-3) Last Admin: 02/05/23 10:30 Dose: 650 mg Al Hydroxide/Mg Hydroxide (Magnesium Hydrox/Alum Hydrox 30 Ml Oral.Susp) 30 ml PO Q6H PRN PRN Reason: Heartburn/Nausea Fluoxetine HCl (Fluoxetine Hcl 10 Mg Capsule) 10 mg PO DAILY [facility] Last Admin: 02/05/23 08:25 Dose: 10 mg Gabapentin (Gabapentin 300 Mg Capsule) 300 mg PO BID [facility] Lorazepam (Lorazepam 1 Mg Tablet) 1 mg PO DAILY [facility] Magnesium Hydroxide (Milk Of Magnesia 30 Ml Oral.Susp) 30 ml PO DAILY PRN PRN Reason: Constipation Magnesium Hydroxide (Milk Of Magnesia 30 Ml Oral.Susp) 30 ml PO Q6H PRN PRN Reason: Indigestion Nicotine (Nicotine 21 Mg Patch.Td24) 21 mg TRANSDERMA DAILY [facility] Last Admin: 02/05/23 08:30 Dose: Not Given Nicotine Polacrilex (Nicotine Polacrilex 2 Mg Gum) 4 mg BUCCAL Q2H PRN PRN Reason: Nicotine Cravings Last Admin: 02/05/23 17:16 Dose: 4 mg Olanzapine (Olanzapine 10 Mg Tablet) 10 mg PO TID PRN PRN Reason: Agitation Last Admin: 02/05/23 13:10 Dose: 10 mg Oxcarbazepine (Oxcarbazepine 150 Mg Tablet) 150 mg PO BID [facility] Last Admin: 02/05/23 08:24 Dose: 150 mg Quetiapine Fumarate (Quetiapine Fumarate 25 Mg Tablet) 75 mg PO DAILY [facility] Last Admin: 02/05/23 08:24 Dose: 75 mg Quetiapine Fumarate (Quetiapine Fumarate 100 Mg Tablet) 100 mg PO BEDTIME [facility] Last Admin: 02/04/23 19:47 Dose: 100 mg Quetiapine Fumarate (Quetiapine Fumarate 50 Mg Tablet) 50 mg PO Q4H PRN PRN Reason: Agitation Last Admin: 02/05/23 13:11 Dose: 50 mg Trazodone HCl (Trazodone Hcl 50 Mg Tablet) 50 mg PO BEDTIME MRX1 PRN PRN Reason: Insomnia Last Admin: 02/04/23 19:47 Dose: 50 mg Allergies Allergies Allergy/AdvReac Type Severity Reaction Status Date / Time No Known Allergies Allergy Verified 01/27/23 14:14 [No Known Allergies*] Assessment & Plan Assessment & Plan (1) MDD (major depressive disorder): Status: Acute Code(s): F32.9 - Major depressive disorder, single episode, unspecified (2) PTSD (post-traumatic stress disorder): Status: Acute Code(s): F43.10 - Post-traumatic stress disorder, unspecified (3) Intermittent explosive disorder: Status: Acute Code(s): F63.81 - Intermittent explosive disorder (4) Opioid use disorder: Status: Acute Code(s): F11.90 - Opioid use, unspecified, uncomplicated (5) Alcohol use disorder: Status: Acute Code(s): F10.90 - Alcohol use, unspecified, uncomplicated Plan Patient is a 28-year-old male with history of PTSD, depression, drug and alcohol abuse, gang affiliation who presents for suicidal ideation in the face of chronic depression and recent verbal altercation with [id number]. Patient returns from medical floor medically cleared. On 02/01 patient was walking down the [place] and had a sudden syncopal event; vitals all within normal limits; blood sugar within normal limits; labs within normal limits. On fall, patient hit the back of his head; he received head CT/neck CT which was unremarkable however spent the night on medicine to assess altered mental status which fully cleared and patient return to the unit. Patient today reports that he is doing well and glad to be back. However patient this morning, NEAR syncopal event, again with all vitals within normal limits; repeat head CT within normal limits. Patient glad to be on the unit and wants to continue with treatment. -patient has a long history of severe trauma starting in childhood and continuing into his adult life which is unprocessed and ongoing; symptoms are worsened by chronic daily substance abuse. Pt eagerly seeking treatment, distraught by how easily he gets anger and how much it is controlled and ruins his life.? First admission Hospital course: detox patient from alcohol abuse; PRNs will also help with opioid detox.? Patient agrees to starting Prozac which is indicated for PTSD, depression and anxiety; will also restart Seroquel which patient said helped him in the past.? Patient has had some very intense angry outbursts since being on the unit; he is able to be redirected and puts himself in his room to keep him away from others however patient will likely benefit from a mood stabilizer to help control his anger. 01/31 when feeling calm and in control, patient is cooperative, friendly, considerate and appropriately engaged in treatment.? When triggered he becomes explosively angry, and though he publicly expresses it, tries to avoid interacting with others so that he can cool off without getting in any kind of altercation.? Patient understands combination of unprocessed trauma and raw emotions more fully exposed by sobriety.? Agrees to start Trileptal In his anger patient punched wall with his left hand; x-ray ordered CURRENT admission Hospital course: 02/02 feel better, glad to be on the unit, did have another near syncopal event however again vitals, head CT within normal limits. Still not sure the etiology however have discontinued clonidine 02/03 continue current treatment plan 02/04 increase gabapentin to 300mg tid for anxiety and alcohol cravings 02/05 doing much better; good mood; good impulse control Plan: CV Q 15 minute checks Continue trileptal 125mg BID for intermittent explosive disorder gabapentin 300mg TID Continue Prozac 10 mg daily Continue: -Seroquel 75 mg q.a.m. -Seroquel 50 mg p.r.n. -Seroquel 100 mg q.h.s. Patient educated on: diagnosis and therapeutic strategies Informed Consent: understands Reason for contiued inpatient stay Substantial Risk for: stable for discharge Time Spent With Patient Time: Total time managing care of this patient today ____ minutes.
[2023-02-05] MEDS: QUEtiapine Fumarate 100 MG TABLET PO (20:43)
[2023-02-05] MEDS: traZODone HCL 50 MG TABLET PO (20:44)
--- NOTE | 2023-02-05 20:44 | MHC.RECOVSUP ---
? Reason for consult: Recovery Support o Current location: 511-2 o Identified substance use concern: TAMIKA - Support ? ?Intervention: o Community resources provided o Harm reduction discussion ? Additional information:?motor coach chauffeur met with pt and reviewed harm reduction strategies along with options for treatment. Specialized Language Instructor will also submit referral for Health Assistant services with [facility] in [place].
[2023-02-06] MEDS: QUEtiapine Fumarate 50 MG TABLET PO ×4 (00:38→18:42)
[2023-02-06] MEDS: Nicotine Polacrilex 2 MG GUM 4 MG BUCCAL ×6 (06:49→23:48)
[2023-02-06] MEDS: OXcarbazepine 150 MG TABLET PO ×2 (08:15→20:42)
[2023-02-06] MEDS: FLUoxetine HCl 10 MG CAPSULE PO (08:15)
[2023-02-06] MEDS: Gabapentin 300 MG CAPSULE PO ×2 (08:15→20:42)
[2023-02-06] MEDS: QUEtiapine Fumarate 25 MG TABLET 75 MG PO (08:15)
[2023-02-06] MEDS: LORazepam 1 MG TABLET PO (08:15)
[2023-02-06 08:17] VITALS: BP 138/86; PULSE 91; RESP 20; O2SAT 98
[2023-02-06] MEDS: OLANZapine 10 MG TABLET PO (11:27)
--- NOTE | 2023-02-06 12:58 | HO.PSYCHPN ---
Subjective Subjective Date of Service: 02/06/23 Reason For Visit: Depression Interim History: Met with patient; discussed with team Patient remains in good mood, future oriented, and very grateful in proud for work accomplished during this admission. Continues to share that he is able to remain calm and in good impulse control, clearly demonstrated on the unit, something he feels he has never been able to do before. Patient remains focused on continuing treatment on discharge which is planned for tomorrow. Mental Status Exam Mental Status Exam Narrative: Pt is alert and oriented; behavior cooperative, calm, friendly; dressed in casual attire, well groomed; tattoos and scars on his arms; mood is described as good and affect congruent, calm; eye contact appropriate; Speech is normal rate, volume and prosody; no psychomotor agitation; thought process is organized and goal directed; Thought content is on tx, post discharge plans, sobriety; otherwise pertinent to relevant topics and without any delusional content, paranoid ideations or grandiosity; no SI; no HI. There is no evidence of perceptual disturbance and denies AVH. Patients insight and judgment are fair. Diagnostics Vital Signs (24Hr): Vital Signs - 24 hr 02/05/23 17:05 02/06/23 08:17 Temperature 97.4 F Pulse Rate 91 91 Respiratory Rate 20 Blood Pressure 131/74 138/86 Pulse Oximetry 98 Oxygen Delivery Method Room Air Imaging Radiology Impressions: ITS Impressions Head CT 02/02/23 14:23 IMPRESSION: No acute intracranial pathology. Medications Medications Current Medications Acetaminophen (Acetaminophen 325 Mg Tablet) 650 mg PO Q6H PRN PRN Reason: Headache/Pain Mild Scale (1-3) Last Admin: 02/05/23 10:30 Dose: 650 mg Al Hydroxide/Mg Hydroxide (Magnesium Hydrox/Alum Hydrox 30 Ml Oral.Susp) 30 ml PO Q6H PRN PRN Reason: Heartburn/Nausea Fluoxetine HCl (Fluoxetine Hcl 10 Mg Capsule) 10 mg PO DAILY [facility] Last Admin: 02/06/23 08:15 Dose: 10 mg Gabapentin (Gabapentin 300 Mg Capsule) 300 mg PO BID [facility] Last Admin: 02/06/23 08:15 Dose: 300 mg Lorazepam (Lorazepam 1 Mg Tablet) 1 mg PO DAILY [facility] Last Admin: 02/06/23 08:15 Dose: 1 mg Magnesium Hydroxide (Milk Of Magnesia 30 Ml Oral.Susp) 30 ml PO DAILY PRN PRN Reason: Constipation Magnesium Hydroxide (Milk Of Magnesia 30 Ml Oral.Susp) 30 ml PO Q6H PRN PRN Reason: Indigestion Nicotine (Nicotine 21 Mg Patch.Td24) 21 mg TRANSDERMA DAILY [facility] Last Admin: 02/06/23 08:15 Dose: Not Given Nicotine Polacrilex (Nicotine Polacrilex 2 Mg Gum) 4 mg BUCCAL Q2H PRN PRN Reason: Nicotine Cravings Last Admin: 02/06/23 11:03 Dose: 4 mg Olanzapine (Olanzapine 10 Mg Tablet) 10 mg PO TID PRN PRN Reason: Agitation Last Admin: 02/06/23 11:27 Dose: 10 mg Oxcarbazepine (Oxcarbazepine 150 Mg Tablet) 150 mg PO BID [facility] Last Admin: 02/06/23 08:15 Dose: 150 mg Quetiapine Fumarate (Quetiapine Fumarate 25 Mg Tablet) 75 mg PO DAILY [facility] Last Admin: 02/06/23 08:15 Dose: 75 mg Quetiapine Fumarate (Quetiapine Fumarate 100 Mg Tablet) 100 mg PO BEDTIME [facility] Last Admin: 02/05/23 20:43 Dose: 100 mg Quetiapine Fumarate (Quetiapine Fumarate 50 Mg Tablet) 50 mg PO Q4H PRN PRN Reason: Agitation Last Admin: 02/06/23 05:02 Dose: 50 mg Trazodone HCl (Trazodone Hcl 50 Mg Tablet) 50 mg PO BEDTIME MRX1 PRN PRN Reason: Insomnia Last Admin: 02/05/23 20:44 Dose: 50 mg Allergies Allergies Allergy/AdvReac Type Severity Reaction Status Date / Time No Known Allergies Allergy Verified 01/27/23 14:14 [No Known Allergies*] Assessment & Plan Assessment & Plan (1) MDD (major depressive disorder): Status: Acute Code(s): F32.9 - Major depressive disorder, single episode, unspecified (2) PTSD (post-traumatic stress disorder): Status: Acute Code(s): F43.10 - Post-traumatic stress disorder, unspecified (3) Intermittent explosive disorder: Status: Acute Code(s): F63.81 - Intermittent explosive disorder (4) Opioid use disorder: Status: Acute Code(s): F11.90 - Opioid use, unspecified, uncomplicated (5) Alcohol use disorder: Status: Acute Code(s): F10.90 - Alcohol use, unspecified, uncomplicated Plan Patient is a 28-year-old male with history of PTSD, depression, drug and alcohol abuse, gang affiliation who presents for suicidal ideation in the face of chronic depression and recent verbal altercation with [id number]. Patient returns from medical floor medically cleared. On 02/01 patient was walking down the [address] and had a sudden syncopal event; vitals all within normal limits; blood sugar within normal limits; labs within normal limits. On fall, patient hit the back of his head; he received head CT/neck CT which was unremarkable however spent the night on medicine to assess altered mental status which fully cleared and patient return to the unit. Patient today reports that he is doing well and glad to be back. However patient this morning, NEAR syncopal event, again with all vitals within normal limits; repeat head CT within normal limits. Patient glad to be on the unit and wants to continue with treatment. -patient has a long history of severe trauma starting in childhood and continuing into his adult life which is unprocessed and ongoing; symptoms are worsened by chronic daily substance abuse. Pt eagerly seeking treatment, distraught by how easily he gets anger and how much it is controlled and ruins his life.? First admission Hospital course: detox patient from alcohol abuse; PRNs will also help with opioid detox.? Patient agrees to starting Prozac which is indicated for PTSD, depression and anxiety; will also restart Seroquel which patient said helped him in the past.? Patient has had some very intense angry outbursts since being on the unit; he is able to be redirected and puts himself in his room to keep him away from others however patient will likely benefit from a mood stabilizer to help control his anger. 01/31 when feeling calm and in control, patient is cooperative, friendly, considerate and appropriately engaged in treatment.? When triggered he becomes explosively angry, and though he publicly expresses it, tries to avoid interacting with others so that he can cool off without getting in any kind of altercation.? Patient understands combination of unprocessed trauma and raw emotions more fully exposed by sobriety.? Agrees to start Trileptal In his anger patient punched wall with his left hand; x-ray ordered CURRENT admission Hospital course: 02/02 feel better, glad to be on the unit, did have another near syncopal event however again vitals, head CT within normal limits. Still not sure the etiology however have discontinued clonidine 02/03 continue current treatment plan 02/04 increase gabapentin to 300mg tid for anxiety and alcohol cravings 02/05 doing much better; good mood; good impulse control Four/for remains significantly improved, good mood, no SI or HI, future oriented and optimistic about sobriety and stability. Patient has plans to continue treatment as an outpatient. He is looking for to discharge tomorrow. While he remains vulnerable for both relapse and dysregulation, these are chronic issues that will not resolve with longer stay on inpatient unit but rather require long-term commitment to outpatient treatment, something with which patient is currently willing to engage. Patient is not in imminent risk for harm to self or others and his request for discharge honored. Plan: CV Q 15 minute checks Continue trileptal 125mg BID for intermittent explosive disorder gabapentin 300mg TID for anxiety and alcohol cravings Continue Prozac 10 mg daily Continue: -Seroquel 75 mg q.a.m. -Seroquel 50 mg p.r.n. -Seroquel 100 mg q.h.s. Patient educated on: diagnosis, medication risk/benefits and therapeutic strategies Informed Consent: understands Reason for contiued inpatient stay Substantial Risk for: stable for discharge Time Spent With Patient Time: Total time managing care of this patient today ____ minutes.
[2023-02-06 18:15] VITALS: BP 132/63; PULSE 79; TEMP 36.4; O2SAT 98
[2023-02-06] MEDS: QUEtiapine Fumarate 100 MG TABLET PO (20:41)
[2023-02-06] MEDS: traZODone HCL 50 MG TABLET PO ×2 (20:44→23:48)
[2023-02-07] MEDS: QUEtiapine Fumarate 50 MG TABLET PO (04:06)
[2023-02-07] MEDS: Nicotine Polacrilex 2 MG GUM 4 MG BUCCAL ×3 (05:49→10:35)
--- NOTE | 2023-02-07 07:59 | PM.PSYDC ---
DS: Providers Provider Date of Service: 02/07/23 Date of admission: 02/02/23 11:05 Date of discharge: 02/07/23 Primary care physician: Unknown Physician Attending physician on admission: Glenn Heard Consults: 02/02/23 13:17 Consult to Hospitalist Routine Comment: Consulting Provider: Hospitalist Reason For Exam: syncopal event Attending physician on discharge: Glenn Heard DS: Diagnosis Discharge Diagnosis (1) MDD (major depressive disorder): Status: Acute (2) PTSD (post-traumatic stress disorder): Status: Acute (3) Intermittent explosive disorder: Status: Acute (4) Opioid use disorder: Status: Acute (5) Alcohol use disorder: Status: Acute DS: Medications Discharge Medications Home Medications: Home Medications Medication Instructions Recorded Confirmed acetaminophen 325 mg tablet 650 mg PO Q6H PRN Pain 02/01/23 02/01/23 clonidine HCl 0.1 mg tablet 0.1 mg PO Q4H PRN Agitation 02/01/23 02/01/23 fluoxetine 10 mg capsule 10 mg PO DAILY 02/01/23 02/01/23 gabapentin 300 mg capsule 300 mg PO TID 02/01/23 02/01/23 ibuprofen 800 mg tablet 800 mg PO Q8H PRN Pain 02/01/23 02/01/23 lorazepam 1 mg tablet 1 mg PO Q2H PRN Agitation 02/01/23 02/01/23 lorazepam 1 mg tablet 1 mg PO TID 02/01/23 02/01/23 magnesium hydroxide 400 mg/5 mL 30 ml PO Q6H PRN Indigestion 02/01/23 02/01/23 oral suspension magnesium hydroxide 400 mg/5 mL 30 ml PO DAILY PRN Constipation 02/01/23 02/01/23 oral suspension (Milk of Magnesia) nicotine (polacrilex) 4 mg gum 4 mg buccal Q2H PRN Nicotine 02/01/23 02/01/23 Cravings nicotine 21 mg/24 hr daily 1 patch transdermal DAILY 02/01/23 02/01/23 transdermal patch olanzapine 10 mg tablet 10 mg PO TID PRN Agitation 02/01/23 02/01/23 oxcarbazepine 150 mg tablet 150 mg PO BID 02/01/23 02/01/23 quetiapine 100 mg tablet 100 mg PO BEDTIME 02/01/23 02/01/23 quetiapine 25 mg tablet 75 mg PO DAILY 02/01/23 02/01/23 quetiapine 50 mg tablet 50 mg PO Q4H PRN Agitation 02/01/23 02/01/23 trazodone 50 mg tablet 50 mg PO BEDTIME 02/01/23 02/01/23 Mental Status Exam Mental Status Exam Narrative: Pt is alert and oriented; behavior cooperative, calm, friendly; dressed in casual attire, well groomed; tattoos and scars on his arms; mood is described as good and affect congruent, calm; eye contact appropriate; Speech is normal rate, volume and prosody; no psychomotor agitation; thought process is organized and goal directed; Thought content is on tx, post discharge plans, sobriety; otherwise pertinent to relevant topics and without any delusional content, paranoid ideations or grandiosity; no SI; no HI. There is no evidence of perceptual disturbance and denies AVH. Patients insight and judgment are fair. Data Data Completed and Pending Completed studies during hospitalization [Text1]: 02/02/23 13:13 POC Glucose 132 H Imaging Diagnostic Imaging Impressions Head CT 02/02/23 14:23 IMPRESSION: No acute intracranial pathology. DS: Summary Hospital Course Hospital Course: Patient is a 28-year-old male with history of PTSD, depression, drug and alcohol abuse, gang affiliation who presents for suicidal ideation in the face of chronic depression and recent verbal altercation with [id number].? -patient has a long history of severe trauma starting in childhood and continuing into his adult life which is unprocessed and ongoing; symptoms are worsened by chronic daily substance abuse. ? On admission, patient was depressed with intermittent SI however he was eagerly seeking treatment. Alcohol detox was managed without incident. Early on in admission, Patient has had some very intense, explosive angry outbursts; although scary, he was able to be redirected and would also puts himself in his room to keep him away from others. As his anger subsided, patient was breakdown into tears, lamenting his struggles to control his anger and recounting some painful traumatic memories. Patient understands combination of unprocessed trauma and raw emotions more fully exposed by sobriety and he agreed to medication management as well as attended all groups and remained forthcoming in interview sessions. He was restarted on Seroquel which had helped in the past. He was also started on Prozac for PTSD and Trileptal for anger management. On this combination, with milieu therapy, patient stabilized and remained in good behavioral and impulse control for the remainder of his stay. Patient's mood significantly improved and all SI remained fully resolved. Patient started feeling ready to discharge; he was eager to continue treatment as an outpatient agreed to attend IOP/partial day program. On day of discharge, patient shared that 1 of the most valuable things he has learned is that if he ever feels angry or upset he now knows that he can just wait a bit and the feeling will past; patient says he will call for help with he ever does feel unsafe again. Patient remained in good mood, without any SI or HI, with noticeably brighter affect, in good emotional and behavioral control and future oriented and optimistic about sobriety and stability.? Patient understands that he remains vulnerable to both relapse and dysregulation, however he also understands that these are chronic issues that will not resolve with longer stay on inpatient unit but rather require long-term commitment to outpatient treatment, something with which he is currently willing to engage.? Patient is not in imminent risk for harm to self or others and his request for discharge honored. -While on the unit, patient had a witnessed syncopal episode of unknown origin where he fell and hit his head; he was briefly admitted to medical floor for observation; head CT within normal limits. He was medically cleared and returned to the psychiatric unit but again got dizzy and had a near-syncopal episode; repeat head CT WNL. After this, no more dizzy or syncopal episodes. -he wants when patient was angry he punched a wall; hand x-ray WNL Time spent discussing smoking cessation with patient: 3 to 10 minutes Status at Discharge Functional status at discharge: independent ambulation Overall status at discharge: patient is back to baseline Time Spent with Patient Time attestation: Total time managing care of this patient today ____ minutes. Time spent: Greater than 30 minutes Discharge Plan Discharge Anticipated Discharge Date/Time: 02/07/23 11:30 Patient Disposition: Home, Self-Care Discharge Diagnosis: The MDD, recurrent, severe, without psychotic features, in full remission Referrals: [facility] [Other] - 1 Week (This is a peer-run drop-in center, they offer a variety of services for recovery and peer support. Hours are 8am to 5pm. ) [facility] [Other] - 1 Week (Continue to utilize her as a resource and a person who can help you get in touch with other resources you may need. ) [facility] [Other] (Walk in if needed) Discharge Medications: New fluoxetine 10 mg Capsule 10 mg PO DAILY 30 Days Qty: 30 1RF gabapentin 300 mg Capsule 300 mg PO TID 30 Days Qty: 90 1RF oxcarbazepine 150 mg Tablet 150 mg PO BID 30 Days Qty: 60 1RF quetiapine 100 mg Tablet 100 mg PO BEDTIME 30 Days Qty: 30 1RF quetiapine 25 mg Tablet 75 mg PO DAILY 30 Days Qty: 90 1RF quetiapine 50 mg Tablet 50 mg PO Q4H PRN (Reason: Agitation) 30 Days Qty: 60 0RF trazodone 50 mg Tablet 50 mg PO BEDTIME PRN (Reason: Insomnia) 30 Days Qty: 30 1RF Continued nicotine (polacrilex) 4 mg Gum 4 mg BUCCAL Q2H PRN (Reason: Nicotine Cravings) 30 Days Qty: 100 1RF Changed nicotine 21 mg/24 hr Patch 24 Hour 1 patch TRANSDERMAL DAILY PRN (Reason: smoking cessation) 28 Days Qty: 28 1RF Discontinued quetiapine 25 mg Tablet 75 mg PO DAILY oxcarbazepine 150 mg Tablet 150 mg PO BID clonidine HCl 0.1 mg Tablet 0.1 mg PO Q4H PRN (Reason: Agitation) acetaminophen 325 mg Tablet 650 mg PO Q6H PRN (Reason: Pain) trazodone 50 mg Tablet 50 mg PO BEDTIME Rx Instructions: MAY REPEAT X 1 ibuprofen 800 mg Tablet 800 mg PO Q8H PRN (Reason: Pain) olanzapine 10 mg Tablet 10 mg PO TID PRN (Reason: Agitation) quetiapine 100 mg Tablet 100 mg PO BEDTIME magnesium hydroxide [Milk of Magnesia] 400 mg/5 mL Suspension 30 ml PO DAILY PRN (Reason: Constipation) magnesium hydroxide 400 mg/5 mL Suspension 30 ml PO Q6H PRN (Reason: Indigestion) fluoxetine 10 mg Capsule 10 mg PO DAILY gabapentin 300 mg Capsule 300 mg PO TID lorazepam 1 mg Tablet 1 mg PO Q2H PRN (Reason: Agitation) lorazepam 1 mg Tablet 1 mg PO TID quetiapine 50 mg Tablet 50 mg PO Q4H PRN (Reason: Agitation) Discharge Orders: Discharge Order (Routine); Ordered 02/07/23 Ordered By: Glenn Heard Diet: Regular diet Activity on Discharge: As tolerated Stand Alone Forms: Patient Portal Discharge page Care Plan Goals: Maintain mood and safe behaviors Take medications as prescribed Continue to pursue sobriety Practice coping skills Continue with outpatient providers and reach out to them as needed Health Concerns: Mood stability and behaviors Sobriety Plan of Treatment: Follow up with your PCP, psychiatric provider and other outpatient providers regarding above concerns Take medications as prescribed Assessment: Risk assessment at time of discharge:? Patient was interviewed prior to discharge and found to be fully oriented and without any SI or HI. Patient has insight and demonstrates good judgment in terms of wanting to pursue treatment. Patient is not in imminent risk of harm to self or others and has a safety plan that includes presenting to the closest ER or calling 911 if feeling unsafe.? Patient has been observed closely by nursing and unit staff throughout admission; patient has not engaged in any behaviors that suggest dangerousness to self or others and has demonstrated appropriate behaviors and impulse control
[2023-02-07] MEDS: FLUoxetine HCl 10 MG CAPSULE PO (08:15)
[2023-02-07] MEDS: Gabapentin 300 MG CAPSULE PO (08:15)
[2023-02-07] MEDS: LORazepam 1 MG TABLET PO (08:16)
[2023-02-07] MEDS: OXcarbazepine 150 MG TABLET PO (08:16)
[2023-02-07] MEDS: QUEtiapine Fumarate 25 MG TABLET 75 MG PO (08:16)
[2023-02-07 09:42] VITALS: BP 144/65; PULSE 80; RESP 18; TEMP 36.5; O2SAT 97
[2023-02-07] MEDS: Naloxone HCl Nasal TAKE HOME 4 MG SPRAY NOSTRILALT (10:35)
[2023-02-07] MEDS: OLANZapine 10 MG TABLET PO (11:07)
== END 2023-02-07 11:33 | disposition home or self-care (01) | DRG 754 ==
PROVIDERS: Admitting Provider Psychiatry & Neurology Psychiatry; Visit Provider Psychiatry & Neurology Psychiatry
DX: F32.9 Major depressive disorder, single episode, unspecified (principal); R45.851 Suicidal ideations; F17.210 Nicotine dependence, cigarettes, uncomplicated; F63.81 Intermittent explosive disorder; F43.10 Post-traumatic stress disorder, unspecified; F10.10 Alcohol abuse, uncomplicated; F11.10 Opioid abuse, uncomplicated; Z71.6 Tobacco abuse counseling; Z79.899 Other long term (current) drug therapy
CPT/HCPCS: 70450; 82947; 93005